=== PATIENT | female | born 1940 | race Two or more races ===

== ENCOUNTER 2016-12-12 15:21 | Observation (INO) | payer MEDICARE, OTHER ==
[~2016-12-12 15:21] MED LIST: ACETAMINOPHEN 325 MG TAB PO PRN; ACETAMINOPHEN/HYDROcodone 325 MG/10 MG TAB PO PRN; BISACODYL 10 MG SUPP RECTAL PRN; ESCI20TA PO; FENT50DI T-DERMAL; GABA300C5 PO; HYDR-3366 PO; LACTULOSE SYRUP 20 GM/30 ML CUP PO PRN; LEVO75TA3 PO; LORA0.5T PO; LOSA25TA PO; MAGNESIUM HYDROXIDE SUSP 30 ML CUP PO PRN; MELO15TA20 PO; MORP1TAB25 PO; NALOXONE HCL 0.4 MG/ML AMP IV PRN; ONDANSETRON HCL 4 MG/2 ML VIAL IVP PRN; PRAV40TA2 PO; RANI150T PO; SENNOSIDES 8.6 MG TAB PO PRN; SODIUM CHLORIDE 0.9% FLUSH 10 ML FLUSH IV FLUSH PRN; TRAZ50TA12 PO
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
[2016-12-12] MEDS ORDERED: MORPHINE SULFATE 30 MG CONTROLLED RELEASE TAB PO SCH (16:00)
[2016-12-12] MEDS ORDERED: DEXTROSE 50% IN WATER 50 ML VIAL(D50) IV PRN (16:15)
[2016-12-12] MEDS ORDERED: GLUCAGON 1 MG/ML VIAL OTHER PRN (16:15)
[2016-12-12] MEDS ORDERED: fentaNYL 25 MCG/HR PATCH T-DERMAL SCH (16:30)
[2016-12-12] MEDS ORDERED: fentaNYL 50 MCG/HR PATCH T-DERMAL SCH (17:00)
[2016-12-12 17:44] VITALS: BP 196/101; PULSE 74; RESP 18; TEMP 98.6; O2SAT 74
[2016-12-12] MEDS: GABAPENTIN 300 MG CAP PO SCH (18:10)
[2016-12-12] MEDS: ENALAPRILAT 2.5 MG/2 ML VIAL IV PUSH PRN (18:11)
[2016-12-12] MEDS: SODIUM CHLOR 0.9% 1000 ML INJ 1,000 ML IV SCH (18:21)
[2016-12-12] MEDS: LOSARTAN 50 MG TAB PO SCH (18:21)
[2016-12-12 19:00] VITALS: BP 138/72; PULSE 64; RESP 19; TEMP 98.5; O2SAT 96
[2016-12-12 20:00] VITALS: PULSE 60
[2016-12-12 21:00] VITALS: PULSE 81
[2016-12-12] MEDS: SODIUM CHLORIDE 0.9% FLUSH 10 ML FLUSH IV FLUSH SCH (21:00)
[2016-12-12] MEDS: INSULIN ASPART SUPPLEMENTAL SCALE SQ SCH (21:00)
[2016-12-12 22:00] VITALS: PULSE 71
[2016-12-12] MEDS: FAMOTIDINE 20 MG TAB PO SCH (22:22)
[2016-12-12] MEDS: DOCUSATE SODIUM 50 MG/SENNA 8.6 MG TAB PO SCH (22:23)
[2016-12-12 23:00] VITALS: BP 127/68; PULSE 72; PULSE 75; RESP 20; TEMP 98.3; O2SAT 97
[2016-12-13] VITALS (18 sets, daily range): BP systolic 153–203; BP diastolic 72–100; PULSE 50–94; RESP 16–20; TEMP 97.6–98.5; O2SAT 98
[2016-12-13] MEDS: SODIUM CHLOR 0.9% 1000 ML INJ 1,000 ML IV SCH (02:00)
[2016-12-13] MEDS: ENALAPRILAT 2.5 MG/2 ML VIAL IV PUSH PRN (02:50)
[2016-12-13] MEDS ORDERED: LEVOTHYROXINE SODIUM 75 MCG TAB PO SCH (06:00)
[2016-12-13] MEDS: INSULIN ASPART SUPPLEMENTAL SCALE SQ SCH ×2 (07:00→11:00)
[2016-12-13 07:13] LABS: MEAN CELL VOLUME 88.8 FL (80.0-100.0); MEAN CORPUSCULAR HEMOGLOBIN 29.1 PG (27.0-34.0); MEAN CORPUSCULAR HGB CONC 32.8 % (32.0-36.0); PLATELET COUNT 255 TH/MM3 (150-450); RED CELL DISTRIBUTION WIDTH 13.9 % (11.6-17.2); REVIEW FLAG FINAL; WHITE BLOOD COUNT 10.6 TH/MM3 (4.0-11.0)
[2016-12-13 07:38] LABS: BICARBONATE 29.5 MEQ/L (21.0-32.0); POTASSIUM 3.6 MEQ/L (3.5-5.1)
[2016-12-13] MEDS: DOCUSATE SODIUM 50 MG/SENNA 8.6 MG TAB PO SCH (08:13)
[2016-12-13] MEDS: LOSARTAN 50 MG TAB PO SCH (08:13)
[2016-12-13] MEDS: GABAPENTIN 300 MG CAP PO SCH ×2 (08:14→13:46)
[2016-12-13] MEDS: FAMOTIDINE 20 MG TAB PO SCH (08:14)
[2016-12-13] MEDS: SODIUM CHLORIDE 0.9% FLUSH 10 ML FLUSH IV FLUSH SCH (08:14)
[2016-12-13] MEDS ORDERED: LOSARTAN 25 MG TAB PO SCH (09:00)
[2016-12-13] MEDS ORDERED: PRAVASTATIN SOD 40 MG TAB PO SCH (09:00)
[2016-12-13] MEDS ORDERED: ESCITALOPRAM OXALATE 20 MG TAB PO SCH (09:00)
[2016-12-13] MEDS ORDERED: LIDOCAINE HCL 5% PATCH T-DERMAL SCH (09:30)
[2016-12-13] MEDS: CYCLOBENZAPRINE HCL 10 MG TAB PO SCH ×2 (09:39→13:46)
--- NOTE | 2016-12-13 09:44 | HHI.PR ---
Subjective Remarks Follow-up for uncontrolled blood pressure and syncope Patient complaining of her chronic lower back pain otherwise she has no other complaints. She stated that she has never tried Lidoderm patch or any muscle relaxant. Denies any headache, visual changes, chest pain, palpitations, lightheadedness dizziness or focal neurological deficits. She said that she feels she is back to her baseline. Patient stated at the moment she is very anxious because she could not get breakfast. She does have a history of anxiety. Dealt with patient's nurse. Objective Vitals Vital Signs Date Time Temp Pulse Resp B/P (MAP) Pulse Ox O2 Delivery O2 Flow Rate FiO2 12/13/16 07:30 98.5 58 16 203/100 (134) 98 12/13/16 06:00 83 12/13/16 05:00 61 12/13/16 04:00 50 12/13/16 04:00 18 12/13/16 03:00 98.3 62 20 177/72 (107) 98 12/13/16 03:00 59 12/13/16 02:00 63 12/13/16 01:00 52 12/13/16 00:00 82 12/12/16 23:00 75 12/12/16 23:00 98.3 72 20 127/68 (87) 97 12/12/16 22:00 71 12/12/16 21:00 81 12/12/16 20:00 60 12/12/16 19:00 98.5 64 19 138/72 (94) 96 12/12/16 19:00 64 12/12/16 17:44 98.6 74 18 196/101 (132) 74 I/O 12/12/16 12/12/16 12/12/16 12/13/16 12/13/16 12/13/16 07:00 15:00 23:00 07:00 15:00 23:00 Intake Total 1466 ml Balance 1466 ml Intake Oral 600 ml IV Total 866 ml # Voids 6 # Bowel Movements 1 Result Diagram: 12/13/1661412/13/16614 Objective Remarks GENERAL: in NAD SKIN: Laceration on left frontal area in which wound is healing. CARDIOVASCULAR: Regular rate and rhythm without murmurs, gallops, or rubs. RESPIRATORY: Breath sounds equal bilaterally. No accessory muscle use. GASTROINTESTINAL: Abdomen soft, non-tender, nondistended. MUSCULOSKELETAL: No cyanosis, or edema. BACK: Nontender without obvious deformity. No CVA tenderness. Medications and IVs Current Medications Sodium Chloride 1,000 ml @ 100 mls/hr Q10H IV Last administered on 12/12/16 18:21; Start 12/12/16 at 16:00 Sodium Chloride (NS Flush) 2 ml UNSCH PRN IV FLUSH FLUSH AFTER USING IV ACCESS Last administered on 12/13/16 02:51; Start 12/12/16 at 15:15 Sodium Chloride (NS Flush) 2 ml BID IV FLUSH Last administered on 12/12/16 21: 00; Start 12/12/16 at 21:00 Acetaminophen (Tylenol) 650 mg Q4H PRN PO TEMP > 100.4; Start 12/12/16 at 15:15 Ondansetron HCl (Zofran Inj) 4 mg Q6H PRN IVP NAUSEA OR VOMITING; Start at 15:15 Naloxone HCl (Narcan Inj) 0.4 mg UNSCH PRN IV SEE LABEL COMMENTS; Start at 15:15 Senna/Docusate Sodium (Makayla-Colace) 1 tab BID PO Last administered on 08:13; Start 12/12/16 at 21:00 Magnesium Hydroxide (Milk Of Magnesia Liq) 30 ml Q12H PRN PO MILD - MODERATE CONSTIPATION; Start 12/12/16 at 15:15 Sennosides (Senokot) 17.2 mg Q12H PRN PO MODERATE - SEVERE CONSTIPATION; Start 12/12/16 at 15:15 Bisacodyl (Dulcolax Supp) 10 mg DAILY PRN RECTAL SEVERE CONSITIPATION; Start at 15:15 Lactulose (Lactulose Liq) 30 ml DAILY PRN PO SEVERE CONSITIPATION; Start at 15:15 Escitalopram Oxalate (Lexapro) 20 mg DAILY PO Last administered on 12/13/16 08 :14; Start 12/13/16 at 09:00 Fentanyl (Duragesic 50 Mcg Patch.72 Hr) 1 patch Q72H T-DERMAL ; Start 12/12/16 at 17:00; Stop 12/12/16 at 17:00; Status DC Gabapentin (Neurontin) 300 mg TID PO Last administered on 12/13/16 08:14; Start 12/12/16 at 18:00 Acetaminophen/ Hydrocodone Bitart (Kennard 10-325 Mg) 1 tab Q6H PRN PO PAIN 1-10 Last administered on 12/13/16 02:55; Start 12/12/16 at 15:15 Levothyroxine Sodium (Synthroid) 75 mcg DAILY@0600 PO Last administered on 12/13 05:15; Start 12/13/16 at 06:00 Losartan Potassium (Cozaar) 25 mg DAILY PO ; Start 12/13/16 at 09:00; Stop 12/13 at 09:00; Status DC Morphine Sulfate (Oramorph Sr) 30 mg Q8H PO ; Start 12/12/16 at 16:00; Stop 02/17 at 16:19; Status DC Pravastatin Sodium (Pravachol) 40 mg DAILY PO Last administered on 12/13/16 08 :14; Start 12/13/16 at 09:00 Famotidine (Pepcid) 20 mg BID PO Last administered on 12/13/16 08:14; Start at 21:00 Miscellaneous Information 1 Q3D T-DERMAL ; Start 12/15/16 at 16:30 Losartan Potassium (Cozaar) 100 mg DAILY PO Last administered on 12/13/16 08: 13; Start 12/12/16 at 16:15 Dextrose (D50w (Vial) Inj) 50 ml UNSCH PRN IV HYPOGLYCEMIA-SEE COMMENTS; Start 12/12/16 at 16:15 Glucagon (Glucagon Inj) 1 mg UNSCH PRN OTHER HYPOGLYCEMIA-SEE COMMENTS; Start 12/12/16 at 16:15 Insulin Aspart (NovoLOG SUPPLEMENTAL SCALE) 1 ACHS SLIDING SCALE SQ ; Start 02/17 at 21:00 Enalaprilat (Vasotec Inj) 2.5 mg Q6H PRN IV PUSH SBP>180 or DBP>100 Last administered on 12/13/16 02:50; Start 12/12/16 at 16:30 Fentanyl (Duragesic 25 Mcg Patch.72 Hr) 1 patch Q3D T-DERMAL Last administered on 12/12/16 18:16; Start 12/12/16 at 16:30 Cyclobenzaprine HCl (Flexeril) 5 mg Q8HR PO ; Start 12/13/16 at 09:30 Lidocaine HCl (Lidoderm 5% Patch.12 Hr) 1 patch DAILY T-DERMAL ; Start 12/13/16 at 09:30 Hydralazine HCl (Apresoline) 50 mg Q8H PO ; Start 12/13/16 at 10:00 A/P Assessment and Plan 76-year-old female with chronic back pain on multiple sedating medication who presented with multiple falls Multiple falls with head trauma and loss of consciousness -Patient back to her baseline. -Labs reviewed from the emergency department in [place] and all negative. CT scan of head does show minimal soft tissue swelling along the left frontal calvarium with no evidence of acute infarct, hemorrhage, mass or edema. -Labs repeated today and stable. -Most likely secondary to being on multiple sedating medication. Patient needs to be weaned off her medication and she is in agreement. -MRI of the head ordered. -Pending OT and PT consult. Uncontrolled hypertension -Patient baseline systolic blood pressure 180s. -She is on losartan 25 mg by mouth daily at home. Losartan increased to 100 mg by mouth daily. She is on enalapril when necessary. -Blood pressure seems to be very labile with normal readings and hypertensive readings. Most likely fluctuating due to per pain and anxiety. -Will start her on hydralazine. Type 2 diabetes -Blood sugars have been normal to her hospitalization. Most likely diet control. -Can follow-up as outpatient. -Patient is on insulin sliding scale. Anemia -No active GI bleed. Stable. Can follow as outpatient. Chronic pain medication/anxiety/depression/hypothyroidism -Fentanyl decreased to 25 mg. Pain seems to be due to muscle spasms. Will add Flexeril. Also add Lidoderm patch. Extensive education given to patient on weaning her off sedating medication due to multiple falls. Patient understands. Patient's whole need to follow-up with her physician in regards to this. -Continue with her home regimen. DVT prophylaxis -SCDs Discharge Planning If blood pressure improved and MRI is okay possible discharge later today. Patsy Eric MD Dec 13, 2016 09:44
[2016-12-13] MEDS ORDERED: hydrALAZINE HCL 50 MG TAB PO SCH (10:00)
[2016-12-13] MEDS ORDERED: GADODIAMIDE PF 287 MG/ML 5 ML VIAL (for RAD MRI) IVCONTRAST ONE (10:35)
--- NOTE | 2016-12-13 11:03 | RADRPT ---
EXAM DATE/TIME: 12/13/2016 10:17 [facility] COMPARISON: No previous studies available for comparison. INDICATIONS : Syncope. Status post head trauma to the left side of the forehead.. CONTRAST: 14 cc Omniscan (gadodiamide) IV MEDICAL HISTORY : Hypertension. Diabetes mellitus type 2. Gastroesophageal reflux disease. SURGICAL HISTORY : Cholecystectomy. ENCOUNTER: Subsequent ACUITY: 2 day PAIN SCORE: 0/10 LOCATION: cranial TECHNIQUE: Multiplanar, multisequence MRI of the brain was performed both prior to and following the administrat ion of paramagnetic contrast. FINDINGS: CEREBRUM: The ventricles are normal for age. No evidence of midline shift, mass lesion, hemorrhage or acute in farction. No extraaxial fluid collections are seen. The pituitary gland and suprasellar cistern are normal in configuration. WHITE MATTER: On the flair weighted images there is increased signal in the periventricular white matter and centru m semiovale characteristic of chronic small vessel ischemic change. POSTERIOR FOSSA: The cerebellum and brainstem are intact. The 4th ventricle is midline. The cerebellopontine angle is unremarkable. The cerebellar tonsils are normal in position. DIFFUSION IMAGING: No focal areas of restricted diffusion are seen. No evidence of acute infarction. EXTRACRANIAL: The visualized portions of the orbits and paranasal sinuses are unremarkable. POST-CONTRAST: No abnormal areas of parenchymal or dural enhancement. No evidence of blood-brain barrier breakdown. CONCLUSION: 1. No acute hemorrhage or mass effect. 2. Atrophy and chronic small vessel ischemic change. Karthik Kaur MD on December 13, 2016 at 10:56 Board Certified Radiologist. This report was verified electronically.
[2016-12-13] MEDS ORDERED: COZA50TA PO (13:49)
[2016-12-13] MEDS ORDERED: HYDR-3800 PO (13:49)
[2016-12-13] MEDS ORDERED: CYCL10TA PO (13:49)
[2016-12-13] MEDS ORDERED: LIDO1ADH4 T-DERMAL (13:49)
[2016-12-13] MEDS ORDERED: FENT25T T-DERMAL (13:49)
--- NOTE | 2016-12-13 13:51 | HHI.DCPOC ---
Discharge Care Plan Diagnosis: (1) Fall (2) Uncontrolled hypertension (3) Chronic pain Goals to Promote Your Health * To prevent worsening of your condition and complications * To maintain your health at the optimal level Directions to Meet Your Goals Take your medications as prescribed Follow your dietary instruction Follow activity as directed Keep your appointments as scheduled Take your immunizations and boosters as scheduled If your symptoms worsen call your PCP, if no PCP go to Urgent Care Center or Emergency Room Smoking is Dangerous to Your Health. Avoid second hand smoke Call the 24-hour hour crisis hotline for domestic abuse at aPtsy Eric MD Dec 13, 2016 13:51
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
[2016-12-15] MEDS ORDERED: REMOVE OLD DURAGESIC (FENTANYL) PATCH T-DERMAL SCH (16:30)
== END 2016-12-13 15:25 | disposition home or self-care (01) ==
LOC: NEDDLT 15:21 → HCIS 15:31 → UNDOADMIN 15:31 → INTOOBSV 16:18 → HCIS 16:18 → UNDODISIN 12-13 15:25
PROVIDERS: ADMIT Family Medicine; ATTEND Family Medicine
DX: S06.9X9A Unspecified intracranial injury with loss of consciousness of unspecified duration, initial encounter (principal); G62.9 Polyneuropathy, unspecified; E11.9 Type 2 diabetes mellitus without complications; D64.9 Anemia, unspecified; I10 Essential (primary) hypertension; F32.9 Major depressive disorder, single episode, unspecified; W18.39XA Other fall on same level, initial encounter; Y93.89 Activity, other specified; E78.5 Hyperlipidemia, unspecified; F41.9 Anxiety disorder, unspecified; G89.29 Other chronic pain; R29.6 Repeated falls; R55 Syncope and collapse; M54.5 Low back pain; E03.9 Hypothyroidism, unspecified; M62.838 Other muscle spasm; K21.9 Gastro-esophageal reflux disease without esophagitis
CPT/HCPCS: 12011; 70450; 70553; 80048; 80053; 80307; 81001; 82550; 82552; 82948; 84484; 85025; 85027; 85610; 85730; 93005; 96374; 96376; 97162; 97166; 99285; A9579; G0378; G8987; G8988; J7030